=== PATIENT | female | born 1995 | race Caucasian/White ===

== ENCOUNTER → 2017-04-22 | Outpatient (CLI) | payer OTHER ==
[~2017-04-22] MED LIST: COLACE100 MG PO; IBUPROFEN600 MG PO; NORCO 5-325 TA1 EACH PO
== END ==
LOC: HEART CORB 14:30
DX: R00.0 Tachycardia, unspecified (principal); R55 Syncope and collapse; R00.2 Palpitations
CPT/HCPCS: 93306